=== PATIENT | female | born 1950 | race Caucasian/White ===

== ENCOUNTER 2016-06-06 15:12 | Outpatient (CLI) | payer MEDICARE | END 2016-06-06 15:13 | disposition home or self-care (01) | DX: D25.2 Subserosal leiomyoma of uterus (principal); N83.8 Other noninflammatory disorders of ovary, fallopian tube and broad ligament ==

== ENCOUNTER 2016-07-03 11:02 | Outpatient (CLI) | payer MEDICARE | END 2016-07-03 11:03 | disposition home or self-care (01) | DX: R19.00 Intra-abdominal and pelvic swelling, mass and lump, unspecified site (principal) ==

== ENCOUNTER 2016-07-30 13:17 | Day surgery (SDC) | payer MEDICARE ==
[2016-07-30] MEDS ORDERED: LACTATED RINGERS 1,000 ML IV ONE ×2 (13:33→15:21)
[2016-07-30] MEDS ORDERED: SCOPOLAMINE PATCH TOP ONE (14:05)
[2016-07-30] MEDS ORDERED: DEXAMETHASONE 4 MG/ML VIAL IVP ONE (15:00)
[2016-07-30] MEDS ORDERED: LIDOCAINE-MPF 2% 5 ML VIAL IM ONE (15:00)
[2016-07-30] MEDS ORDERED: SUCCINYLCHOLINE 200 MG/10 ML VIAL IVP ONE (15:00)
[2016-07-30] MEDS ORDERED: ROCURONIUM 50 MG/5 ML VIAL IVP ONE (15:00)
[2016-07-30] MEDS ORDERED: MIDAZOLAM 2 MG/2 ML VIAL IVP ONE (15:00)
[2016-07-30] MEDS ORDERED: NEOSTIGMINE 1 MG/1 ML 10 ML MDV IVP ONE (15:00)
[2016-07-30] MEDS ORDERED: KETOROLAC 30 MG/ML VIAL IVP ONE (15:00)
[2016-07-30] MEDS ORDERED: GLYCOPYRROLATE 1 MG/5 ML VIAL IVP ONE (15:00)
[2016-07-30] MEDS ORDERED: ACETAMINOPHEN 1,000 MG/100 ML VIAL IV ONE (15:00)
[2016-07-30] MEDS ORDERED: ONDANSETRON 4 MG/2 ML VIAL IVP ONE (15:00)
[2016-07-30] MEDS ORDERED: fentaNYL 100 MCG/2 ML VIAL IVP ONE (15:00)
[2016-07-30] MEDS ORDERED: PROPOFOL 200 MG/20 ML VIAL IVP ONE (15:00)
[2016-07-30] MEDS ORDERED: BUPIVACAINE 0.25%-EPI 1:200000 PF 30 ML VIAL SUBQ ONE (15:01)
[2016-07-30] MEDS ORDERED: HYDROcod/ACETAM 10 MG/325 MG TABLET ONE (18:01)
== END 2016-07-30 13:18 | disposition home or self-care (01) ==
PROC: 0UT54ZZ Resection of Right Fallopian Tube, Percutaneous Endoscopic Approach (ICD-10-PCS; 2016-07-30)
PROC: 0UT04ZZ Resection of Right Ovary, Percutaneous Endoscopic Approach (ICD-10-PCS; principal; 2016-07-30 14:30)
DX: D27.0 Benign neoplasm of right ovary (principal); N73.6 Female pelvic peritoneal adhesions (postinfective); Z80.3 Family history of malignant neoplasm of breast; Z80.0 Family history of malignant neoplasm of digestive organs; Z80.1 Family history of malignant neoplasm of trachea, bronchus and lung; Z82.49 Family history of ischemic heart disease and other diseases of the circulatory system; Z88.2 Allergy status to sulfonamides
CPT/HCPCS: 58661; A9270; J0131; J3490; J7120

== ENCOUNTER 2017-02-06 14:15 | Outpatient (CLI) | payer MEDICARE ==
--- NOTE | 2017-02-09 08:34 | Ultrasound Report ---
ULTRASOUND EXTREMITY LIMITED: 02/06/2017 CLINICAL HISTORY: Right arm mass. TECHNIQUE: Real time scanning by the project admin with saved static images were reviewed. FINDINGS: Corresponding to the palpable mass, is a hyperechoic area in the lateral antecubital fossa which is avascular and measuring 8.4 x 2.7 x 4.4 cm. The mass appears well-circumscribed. No fluid c omponent is identified. IMPRESSION: HYPERECHOIC WELL-CIRCUMSCRIBED MASS RIGHT ANTECUBITAL FOSSA, LIKELY A LIPOMA. SUGGEST CL INICAL FOLLOWUP TO ASSESS STABILITY. IF THERE IS A RAPID CHANGE, CONSIDER MRI. JOB #: [id number] EXT JOB #:[id number]
--- NOTE | 2017-02-09 09:18 | XRAY Report ---
THREE-VIEW RIGHT ELBOW: 02/06/2017 CLINICAL INDICATION: Mass. FINDINGS: AP, lateral, oblique views of the right elbow demonstrate no evidence of fracture or dislo cation. The joint spaces are preserved. There is a fatty lesion in the right antecubital fossa, cor relating with the lipoma identified on ultrasound of the same day. IMPRESSION: NO EVIDENCE OF FRACTURE. LIPOMA IN THE ANTECUBITAL FOSSA. JOB #: [id number] EXT JOB #:[id number]
== END 2017-02-06 14:16 | disposition home or self-care (01) ==
LOC: DI 14:15
PROVIDERS: ATTEND Nurse Practitioner Family
DX: D17.21 Benign lipomatous neoplasm of skin and subcutaneous tissue of right arm (principal)
CPT/HCPCS: 76882

== ENCOUNTER 2017-03-28 11:49 | Outpatient (CLI) | payer MEDICARE ==
[2017-03-28 12:23] LABS: CREATININE 0.7 mg/dL (0.4-1.0)
[2017-03-28] MEDS ORDERED: GADOBUTROL 10 MMOL/10 ML VIAL ONE (14:40)
[2017-03-28] MEDS ORDERED: GADOBUTROL 10 MMOL/10 ML VIAL IVP ONE (15:25)
--- NOTE | 2017-03-29 12:31 | MRI Report ---
EXAM: RIGHT FOREARM MRI WITHOUT AND WITH CONTRAST EXAM DATE: 03/28/2017 03:43 PM. CLINICAL HISTORY: Swelling and mass in the right upper limb for one year. COMPARISON: 02/06/2017 ultrasound, radiograph 02/06/2017. TECHNIQUE: Multiplanar, multisequence T1-weighted and fluid-sensitive sequences of the forearm before and after administration of intravenous contrast. IV contrast: 8 mL Gadavist. Other: None. FINDINGS: Bones: No fractures or subluxations. No marrow edema or abnormal enhancement. No bone lesions. Joint Spaces: No elbow effusion. Ligaments: The interosseous membrane is intact. Tendons: Mild edema and enhancement is seen at the distal biceps insertion. There is mild tendinosis of the distal triceps tendon. The common flexor and extensor tendon origins are unremarkable. Musculature: No edema or fatty atrophy. Other: As seen on prior examinations, there is an intramuscular lipoma within the brachioradialis mus sekou. This measures 2.4 x 3.6 x 8.3 cm. There is no significant enhancement. IMPRESSION: 1. 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 2. Mild biceps tendinosis. 3. Mild triceps tendinosis. [facility] MUSCULOSKELETAL RADIOLOGY SECTION Referring Provider Line: [phone] SITE ID: [id number]
== END 2017-03-28 11:50 | disposition home or self-care (01) ==
LOC: LAB 11:49
PROVIDERS: ATTEND Orthopaedic Surgery
DX: D17.21 Benign lipomatous neoplasm of skin and subcutaneous tissue of right arm (principal)
CPT/HCPCS: 36415; 73220; 82565; A9585

== ENCOUNTER 2017-07-21 07:25 | Day surgery (SDC) | payer MEDICARE ==
[2017-07-21] MEDS ORDERED: ceFAZolin 2 GM/50 ML 2 GM/50 ML BAG IV ONE (07:35)
[2017-07-21] MEDS ORDERED: LACTATED RINGERS 1,000 ML IV ONE (08:00)
[2017-07-21] MEDS ORDERED: ROPIVACAINE 0.5% PF 20 ML AMPULE ONE (08:23)
[2017-07-21] MEDS ORDERED: fentaNYL 100 MCG/2 ML VIAL IVP ONE (09:00)
[2017-07-21] MEDS ORDERED: MIDAZOLAM 2 MG/2 ML VIAL IVP ONE (09:00)
[2017-07-21] MEDS ORDERED: PROPOFOL 200 MG/20 ML VIAL IVP ONE (09:00)
[2017-07-21] MEDS ORDERED: LIDOCAINE-MPF 2% 5 ML VIAL IM ONE (09:00)
[2017-07-21] MEDS ORDERED: ROPIVACAINE 0.5% PF 20 ML AMPULE EP ONE (09:00)
[2017-07-21] MEDS ORDERED: BUPIVACAINE 0.25% PF 30 ML VIAL ONE (09:08)
[2017-07-21] MEDS ORDERED: LIDOCAINE 1%-EPI 1:100000 20 ML MDV ONE (09:08)
[2017-07-21] MEDS ORDERED: LIDOCAINE 1%-EPI 1:100000 20 ML MDV SUBQ ONE (09:11)
[2017-07-21] MEDS ORDERED: BUPIVACAINE 0.25% PF 30 ML VIAL SUBQ ONE (09:11)
[2017-07-21 10:30] VITALS: BP 125/65
--- NOTE | 2017-07-21 10:30 | OPERATIVE REPORT ---
DATE OF SERVICE: 07/21/2017 Physician: Frank De La Garza MD PREOPERATIVE DIAGNOSIS: Right proximal forearm mass, suspected intramuscular lipoma. POSTOPERATIVE DIAGNOSIS: Right proximal forearm mass, suspected intramuscular lipoma. NAME OF PROCEDURE: Right proximal forearm excisional biopsy of forearm mass. SURGEON: Frank De La Garza MD ANESTHESIA: Interscalene block. INDICATIONS FOR SURGERY: The patient is a 67-year-old female with a longstanding enlargement of her right proximal forearm that seems to have been gradually expanding to greater than 4 cm. Workup has included negative x-rays and positive MRI for suspected intramuscular lipoma lying beneath the substance of the brachioradialis muscle, adjacent to the elbow capsule. Recommendation for the patient is a surgical excisional biopsy of the mass. DESCRIPTION OF OPERATIVE PROCEDURE: The patient was taken to the operating room. She was given an interscalene block and was adequately anesthetized. Her forearm and hand were sterilely prepped and draped in a standard fashion. Surgical timeout was held. The patient's limb was elevated and exsanguinated, and a marking pen was used to define a slightly curved incision across the proximal radial forearm. This was centered over the mass. The incision was taken through skin only and a careful dissection was then made down to the brachioradialis muscle. The medial border of the muscle was defined and the approach was adjacent to this border entering between it and the biceps brachii distal tendon. With the muscle reflected, the mass was exposed and was found to be a fairly uniform consistency and well encapsulated, and not invading any of the structures or very adherent at all. This mass was gently teased from its base using a combination of blunt dissection and very selective release with scissors. A small branch of the radial sensory nerve was preserved and dissected away from the mass. Deep to this mass was the radial nerve itself, exposed and protected. Once the mass was removed, its proximal and medial aspect and posterior aspect were identified with individual sutures and labeled, and was sent to Pathology. The tourniquet was deflated. There was very minimal bleeding. Cautery was used very selectively. The wound was flushed and closure was undertaken using 3-0 Vicryl subcutaneous and 4-0 Prolene in a running subcuticular fashion. A [TIME: 03:25] dressing was applied and sterile dressings were applied with a well-padded posterior arm splint. The patient had undergone a very limited infiltration along the incision line with 1% lidocaine with epinephrine and Marcaine. Sterile dressings were applied and a splint, and the patient was taken to the recovery room in stable condition. ESTIMATED BLOOD LOSS: Minimal. COMPLICATIONS: None. COUNTS: Sponge and needle counts were correct. TD: 07/21/2017 10:29
== END 2017-07-21 07:26 | disposition home or self-care (01) ==
LOC: SDS 07:25
PROVIDERS: ATTEND Orthopaedic Surgery
PROC: 0JBG0ZZ Excision of Right Lower Arm Subcutaneous Tissue and Fascia, Open Approach (ICD-10-PCS; principal; 2017-07-21 08:30)
DX: D17.9 Benign lipomatous neoplasm, unspecified (principal)
CPT/HCPCS: 25073; J0690; J7120

== ENCOUNTER 2018-04-28 10:30 | Outpatient (CLI) | payer MEDICARE ==
--- NOTE | 2018-04-29 09:24 | Mammography Report ---
Reason: SCREENING MAMMO Procedure Date: 04/28/2018 Accession Number: [id number] / [id number] Procedure: PAMELA - Screening Mammo w/Mendoza CPT Code: FULL RESULT: EXAM: Screening Mammo w/Mendoza DATE: 04/28/2018 11:14 AM CLINICAL HISTORY: Screening encounter. Family history of breast cancer in the mother at age 50, an aunt at age 45 and a grandmother at age 55. TECHNIQUE: Bilateral CC, laterally exaggerated CC, MLO views were obtained. COMPARISON: 06/14/2015 through 05/06/2015. FINDINGS: The breasts demonstrate diffuse fatty replacement bilaterally. There are coarse typically benign calcifications. No suspicious masses, clustered microcalcifications, or regions of architectural distortion are identified. IMPRESSION: Benign findings RECOMMENDATION: Routine annual screening unless otherwise clinically indicated. BIRADS CATEGORY 2: Benign findings STANDARD QUALIFYING STATEMENTS: 1. This examination was not reviewed with the aid of Computer-Aided Detection (CAD). 2. A negative or benign imaging report should not preclude biopsy if clinically suspicious findings are present. 3. Dense breasts may obscure an underlying neoplasm. 4. This examination was reviewed with the aid of 3D breast imaging (tomosynthesis).
== END 2018-04-28 10:31 | disposition home or self-care (01) ==
LOC: DI 10:30
PROVIDERS: ATTEND Registered Nurse
DX: Z12.31 Encounter for screening mammogram for malignant neoplasm of breast (principal); Z80.3 Family history of malignant neoplasm of breast
CPT/HCPCS: 77063; 77067

== ENCOUNTER 2019-04-27 15:01 | Outpatient (CLI) | payer MEDICARE ==
--- NOTE | 2019-04-27 16:19 | DEXA Report ---
Reason: ASYMPTOMATIC MENOPAUSAL STATE Procedure Date: 04/27/2019 Accession Number: [id number] / [id number] Procedure: DEX - Dexa Spine and/or Hip CPT Code: Final Report FULL RESULT: EXAM: DUAL EMISSION X-RAY ABSORPTIOMETRY (DXA) SCAN EXAM DATE: 04/27/2019 03:25 PM. CLINICAL HISTORY: Asymptomatic menopausal state. Postmenopausal. COMPARISON: None. ADDITIONAL PATIENT INFORMATION: Right-handed patient. One prior oophorectomy at age 67. Non-smoker. TECHNIQUE: Dual energy x-ray absorptiometry (DXA) was performed on a [employer] System. Regions measured at the AP spine, femoral neck, and if needed, forearm. TECHNIQUE LIMITATIONS/EXCLUSIONS: FINDINGS: Lumbar Spine: Bone mineral density 1.070 g/sq cm, T-score -0.9, Z-score 0.2. Femoral Neck: Bone mineral density 0.865 g/sq cm, T-score -1.2, Z-score 0.1. Total Hip: Bone mineral density 0.901 g/sq cm, T-score -0.8, Z-score 0.3. IMPRESSION: 1. Osteopenia. World Health Organization (WHO) Reporting guidelines (based on lowest BMD) for postmenopausal and perimenopausal women, men age 50 years and older: Normal: T-score at or greater than -1.0 Osteopenia: T-score between -1.1 to -2.4 Osteoporosis: T-score at or less than -2.5 [facility]
== END 2019-04-27 15:02 | disposition home or self-care (01) ==
LOC: DI 15:01
PROVIDERS: ATTEND Registered Nurse
DX: M85.88 Other specified disorders of bone density and structure, other site (principal)
CPT/HCPCS: 77080

== ENCOUNTER 2019-04-27 15:02 | Outpatient (CLI) | payer MEDICARE ==
--- NOTE | 2019-04-28 07:44 | Mammography Report ---
Reason: ROUTINE MAMMO Procedure Date: 04/27/2019 Accession Number: [id number] / [id number] Procedure: PAMELA - Screening Mammo w/Mendoza CPT Code: Final Report FULL RESULT: EXAM: Screening Mammo w/Mendoza DATE: 04/27/2019 4:00 PM CLINICAL HISTORY: Screening encounter. Family history of breast cancer in the mother at the age of 55. TECHNIQUE: (B) - Bilateral CC and MLO views were obtained. COMPARISON: 04/28/2018 through 05/06/2015. PARENCHYMAL PATTERN: (A) - The breast(s) demonstrate(s) scattered fibroglandular densities. FINDINGS: There are no suspicious masses, calcifications, or areas of distortion. IMPRESSION: Negative examination. BI-RADS category 1. RECOMMENDATION: (ANNUAL) - Recommend routine annual screening mammography. BI-RADS CATEGORY: (1) - Negative. STANDARD QUALIFYING STATEMENTS: 1. This examination was not reviewed with the aid of Computer-Aided Detection (CAD). 2. A negative or benign imaging report should not preclude biopsy if clinically suspicious findings are present. 3. Dense breasts may obscure an underlying neoplasm. 4. This examination was reviewed with the aid of 3D breast imaging (tomosynthesis).
== END 2019-04-27 15:03 | disposition home or self-care (01) ==
LOC: DI 15:02
PROVIDERS: ATTEND Registered Nurse
DX: Z12.31 Encounter for screening mammogram for malignant neoplasm of breast (principal); Z80.3 Family history of malignant neoplasm of breast
CPT/HCPCS: 77063; 77067

== ENCOUNTER 2021-03-14 07:38 | Outpatient (CLI) | payer MEDICARE ==
--- NOTE | 2021-03-15 09:11 | Mammography Report ---
BILATERAL DIGITAL DIAGNOSTIC MAMMOGRAM 3D/2D: 03/14/2021 CLINICAL: Diffuse left breast pain. Comparison is made to exams dated: 04/27/2019 mammogram, 04/28/2018 mammogram, 06/14/2015 mammogram, and 05/14/2015 mammogram - [facility]. There are scattered fibroglandular elements in both breasts. There is a 0.7 cm high density mass with a spiculated margin in the left breast at 11 o'clock middle depth. This is more prominent. No other significant masses, calcifications, or other findings are seen in either breast. IMPRESSION: INCOMPLETE: NEEDS ADDITIONAL IMAGING EVALUATION The 0.7 cm mass in the left breast is indeterminate. A targeted ultrasound is recommended and will immediately follow. This exam was interpreted at Station ID: [id number]. NOTE: For mammograms, a report in lay terms will be sent to the patient. Approximately 15% of breast malignancies will not be visualized mammographically. In the management of a palpable breast mass, a negative mammogram must not discourage biopsy of a clinically suspicious lesion. Electronically Signed By: Catrachito Kahn M.D. slc/:03/14/2021 08:46:11 ACR BI-RADS Category 0: Incomplete 3340F PARENCHYMAL PATTERN: (A) - The breast(s) demonstrate(s) scattered fibroglandular densities. BI-RADS CATEGORY: (0) - 0 Ultrasound [id number] Immediate follow-up LATERALITY: (B)
--- NOTE | 2021-03-15 09:11 | Ultrasound Report ---
LIMITED ULTRASOUND OF LEFT BREAST AND AXILLA: 03/14/2021 CLINICAL: Patient returns today to evaluate a focal asymmetry in the left breast. Diffuse left breast pain. Comparison is made to exams dated: 03/14/2021 mammogram, 04/27/2019 mammogram, 04/28/2018 mammogram, 06/14/2015 mammogram, and 05/14/2015 mammogram - [facility]. Color flow and real-time ultrasound of the left breast 11 o'clock, and axilla regions were performed . Ellsworth scale images of the real-time examination were reviewed. There is a 0.8 cm x 0.7 cm x 0.6 cm oval mass in the left breast at 11 o'clock middle depth 2 cm from the nipple. This oval mass is hypoechoic with an echogenic boundary. This correlates with mammogra phy findings. Color flow imaging demonstrates that there is an adjacent vascularity. No significant abnormalities were seen sonographically in the left axilla. IMPRESSION: SUSPICIOUS OF MALIGNANCY The 0.8 cm x 0.7 cm x 0.6 cm oval mass in the left breast is at a high suspicion for malignancy. An ultrasound guided biopsy is recommended. Exam findings were discussed with the patient by the Dr. Kirill Rodriguez. This exam was interpreted at Station ID: [id number]. Electronically Signed By: Catrachito Kahn M.D. slc/:03/14/2021 09:19:45 Ultrasound BI-RADS: 4c High suspicion of malignancy BI-RADS CATEGORY: (4c) - High Susp None [id number] Immediate follow-up LATERALITY: ()
== END 2021-03-14 07:39 | disposition home or self-care (01) ==
LOC: DI 07:38
PROVIDERS: ATTEND Registered Nurse
DX: N64.4 Mastodynia (principal); N63.22 Unspecified lump in the left breast, upper inner quadrant

== ENCOUNTER 2021-03-21 09:25 | Outpatient (CLI) | payer MEDICARE ==
[~2021-03-21 09:25] MED LIST: BUFFERED LIDOCAINE 10 ML SYRINGE ONE; LIDOCAINE 1%-EPI 1:100000 20 ML MDV ONE
[2021-03-21] MEDS ORDERED: LIDOCAINE 1%-EPI 1:100000 20 ML MDV SUBQ ONE (11:22)
[2021-03-21] MEDS ORDERED: BUFFERED LIDOCAINE 10 ML SYRINGE IU ONE (11:22)
--- NOTE | 2021-03-22 08:06 | Mammography Report ---
UNILATERAL LEFT DIGITAL DIAGNOSTIC MAMMOGRAM 3D/2D: 03/21/2021 CLINICAL: Post left breast ultrasound biopsy clip placement imaging. Comparison is made to exams dated: 03/14/2021 ultrasound, 03/14/2021 mammogram, 04/27/2019 mammogram , 04/28/2018 mammogram, 06/14/2015 mammogram, and 05/14/2015 mammogram - [facility]. There are scattered fibroglandular elements in left breast. There is a 0.7 cm high density mass with a spiculated margin in the left breast at 12 o'clock middle depth. A clip has been placed in the region of the mass. IMPRESSION: POST PROCEDURE MAMMOGRAM FOR MARKER PLACEMENT Post biopsy marker placed at site of left breast mass. This exam was interpreted at Station ID: [id number]. NOTE: For mammograms, a report in lay terms will be sent to the patient. Approximately 15% of breast malignancies will not be visualized mammographically. In the management of a palpable breast mass, a negative mammogram must not discourage biopsy of a clinically suspicious lesion. Electronically Signed By: Gisselle valente/:03/21/2021 13:16:40 ACR BI-RADS Category Post-procedure mammogram for marker placement PARENCHYMAL PATTERN: (A) - The breast(s) demonstrate(s) scattered fibroglandular densities. BI-RADS CATEGORY: () - None recall n/a LATERALITY: ()
--- NOTE | 2021-03-27 06:50 | Ultrasound Report ---
ULTRASOUND GUIDED BIOPSY LEFT BREAST USING VACUUM DEVICE WITH MARKING DEVICE INSERTED AND POST DIGITA L MAMMOGRAPHIC IMAGIN03/21/2021 CLINICAL: Left breast mass. PATIENT CONSENT: Risks (minor bleeding, infection, vasovagal reaction and repeat procedure), benefits and alternatives were explained to the patient and written informed consent was obtained. Correlation is made to exams dated: 03/14/2021 ultrasound, 03/14/2021 mammogram, 04/27/2019 mammogra m, 04/28/2018 mammogram, 06/14/2015 mammogram, and 05/14/2015 mammogram - [facility] . An ultrasound guided biopsy using real-time ultrasound was performed for the 0.8 cm x 0.7 cm x 0.6 cm lobulated mass located in the left breast at 11 o'clock middle depth 2 cm from the nipple. This was described on the previous ultrasound report. The skin was prepped in the usual manner. Local anest hetic was administered to the access site. A skin alan was made in the breast. A 13 gauge biopsy ne edle was placed adjacent to the abnormality under ultrasound guidance. Once the needle was documente d to be in the correct location, nine specimens were obtained using the Mammotome biopsy system. A H ydromark clip was inserted into the biopsy cavity. A skin closure strip and a sterile dressing were applied to the access site. Post procedure digital mammographic imaging demonstrates the location de vice at the targeted area. The specimens were sent to the laboratory for pathological analysis. IMPRESSION: ULTRASOUND GUIDED BIOPSY MALIGNANT Ultrasound guided biopsy of the 0.8 cm x 0.7 cm x 0.6 cm mass in the left breast at 11 o'clock middle depth 2 cm from the nipple was successful. Pathology indicates malignant infiltrating ductal carcin tessie. Pathology results are concordant with imaging findings. A surgical/oncologic consultation is r ecommended. This exam was interpreted at Station ID: [id number]. Gisselle valente,clinton/:03/26/2021 14:11:19 BI-RADS CATEGORY: () - Unspecified - other recall n/a LATERALITY: (B)
== END 2021-03-21 09:26 | disposition home or self-care (01) ==
LOC: DI 09:25
PROVIDERS: ATTEND Registered Nurse
DX: C50.212 Malignant neoplasm of upper-inner quadrant of left female breast (principal); Z17.0 Estrogen receptor positive status [ER+]
CPT/HCPCS: 19083

== ENCOUNTER 2023-05-12 09:00 | Outpatient (CLI) | payer MEDICARE ==
--- NOTE | 2023-05-12 09:26 | CARDIAC PROCEDURE NOTE ---
Stress Test Report Service Date: 05/12/23 Service Time: 09:30 Ordering Provider: Ramona Acosta NP Indication for Test: Assess exertional chest discomfort. Significant Medical History: Monet is referred for a treadmill stress echocardiogram today to evaluate exertional substernal chest tightness, that has been occurring intermittently for several months now. She first noticed symptoms when pursuing significant exertional activities, such as raking leaves or walking up major hills. She reports that more recently she has had to limit her participation in some of these activities to avoid symptoms. In addition to chest tightness and discomfo rt she has noticed an increased effort to breathe normally and significant diaphoresis. With rest the symptoms resolve in about 3 to 5 minutes and she denies symptom occurrence at rest. When seen at her primary provider's clinic in early March an EKG was obtained, notable only for sinus bradycardia and she was initiated on aspirin at 81 mg daily. She denies any adverse reactions to this medication. Cardiac Risk Factors: Positive for family history of CAD in her father with fatal CT at age 63; denies history of hypertension, hyperlipidemia, diabetes and any history of tobacco smoking. Type of Stress Test: ETT with Echocardiography Procedure: -Exercise Treadmill Test- After signing informed consent, the patient underwent echo imaging at rest and then performed treadmill exercise using a Forrest protocol. The patient exercised for 8 minutes 57 seconds and achieved a peak heart rate of 141 (97 percent pred icted maximum heart rate for age), and an estimated workload of 10.2 METS. The test was terminated due to fatigue/shortness of breath. Resting heart rate: 70 Peak heart rate: 141 Normal response to exercise. Resting BP: 137/76 Peak BP: 213/83 Normal response of systolic, and abnormal increase of diastolic, BPs to exercise. Rhythm during exercise: Sinus rhythm throughout, without ectopy. Symptoms: In early recovery while undergoing stress echo imaging she described mild chest tightness that had started just at the end of exercise. Therefore she was given a single sublingual nitroglycerin, that did seem to confer some benefit, with reduction of chest tightness and a "calmer" feeling about her heart. She was aware of the medication dissolving under her tongue, but she did not experience any adverse reactions to its administration. EKG at rest showed normal sinus rhythm without specific abnormality, notable for some resting ST elevation of 0.5-1.0 mm in the inferior and anterolateral leads. EKG at peak stress showed ST depression of at least 1.0 mm below baseline in leads V4-V6, that resolved fully in recovery. These changes meet EKG criteria for inducible ischemia. In Recovery heart rate and blood pressure returned rapidly/normally to near baseline levels (86 and 138/75 at 9:00). Echo imaging, performed at rest and with stress, will be reported separately. IDillon MD, was present throughout this treadmill stress study and supervised it in its entirety. Summary: 1) Exercise tolerance markedly above average for age and sex, as evidenced by FELICIANO of -67%. 2) Normal resting EKG. 3) Adequate level of exercise was achieved on this treadmill stress test. 4) Normal systolic BP response to exercise. 5) Ischemic changes by EKG criteria were seen at peak stress. 6) Echo interpretation reveals normal left ventricular size, wall thickness and systolic function, with appropriate hyperdynamic augmentation of all segments with exercise, indicating no evidence of prior infarct or inducible ischemia. No significant valvular abnormality or elevation of estimated pulmonary artery systolic pressure seen on screening study. See separate report for more details. Conclusions and Recommendations: 1) Overall Monet demonstrated preserved exertional tolerance with no clear evidence of ischemia demonstrated echocardiographically. These are favorable responses from the standpoint of prognosis. 2) However she did experience mild chest tightness near peak exercise, associated with significant ST depression, so she probably does have mild inducible ischemia. 3) Administration of sublingual nitroglycerin was well tolerated and may have reduced her discomfort incrementally. 4) I recommended to the patient that she continue taking a daily baby ASA and I was also able to discuss with her ordering provider: issuance of a prescription for SL NTG for prn use, consideration of initiation of a low dose of a contemporary statin and referral to a Electric[facility] Assistant for further management.
[2023-05-12] MEDS ORDERED: NITROGLYCERIN SL 0.4 MG TABLET SL ONE (10:46)
== END 2023-05-12 09:01 | disposition home or self-care (01) ==
LOC: DI 09:00
PROVIDERS: ATTEND Registered Nurse
DX: I20.89 Other forms of angina pectoris (principal); Z82.49 Family history of ischemic heart disease and other diseases of the circulatory system
CPT/HCPCS: 93350; A9270